=== PATIENT | male | born 1975 | race African-American/Black ===

== ENCOUNTER 2016-07-10 16:38 | Emergency (ER) | payer OTHER ==
[~2016-07-10] VITALS: Ht 177.8 cm; Wt 75.0 kg
[2016-07-10] MEDS ORDERED: IBUPROFEN 600 MG TABLET PO ONE (17:45)
[2016-07-10 19:03] VITALS: BP 131/89
== END 2016-07-10 19:05 | disposition home or self-care (01) ==
LOC: EMS 16:42
DX: S80.02XA Contusion of left knee, initial encounter (principal); F17.210 Nicotine dependence, cigarettes, uncomplicated; X58.XXXA Exposure to other specified factors, initial encounter; Y93.83 Activity, rough housing and horseplay; Y92.89 Other specified places as the place of occurrence of the external cause; Y99.8 Other external cause status
CPT/HCPCS: 99284

== ENCOUNTER 2019-09-12 05:23 | Emergency (ER) | payer OTHER ==
[~2019-09-12] VITALS: Ht 172.7 cm; Wt 84.1 kg
[2019-09-12] MEDS ORDERED: LORazepam 2 MG/ML VIAL IVP ONE (06:00)
[2019-09-12 06:14] LABS: BASOPHILS % (AUTO) 0.6 % (0.0-2.0); EOSINOPHILS % (AUTO) 0.9 % (1.0-6.0); HEMATOCRIT 44.7 % (41-53); HEMOGLOBIN 15.2 g/dL (13.5-17.5); LYMPHOCYTES % (AUTO) 34.1 % (22.0-44.0); MEAN CORPUSCULAR HEMOGLOBIN 30.6 pg (26.0-34.0); MEAN CORPUSCULAR VOLUME 90 fL (80-100); MONOCYTES # (AUTO) 0.5 K/uL (0.1-1.0); MONOCYTES % (AUTO) 8.1 % (2.0-9.0); NEUTROPHILS # (AUTO) 3.3 K/uL (1.8-7.7); NEUTROPHILS % (AUTO) 56.3 % (40.0-70.0); PLATELET COUNT (AUTO) 199 K/uL (150-450); RED BLOOD CELL COUNT(AUTO) 4.98 MIL/uL (4.50-5.90); RED CELL DISTRIBUTION WIDTH 14.1 % (11.5-14.5)
[2019-09-12 06:30] LABS: ANION GAP 9 mmol/L (8-16); CALCIUM, TOTAL 8.9 mg/dL (8.8-10.5); CARBON DIOXIDE 27 mmol/L (22-29); CHLORIDE 103 mmol/L (98-107); CREATININE 1.41 mg/dL (0.60-1.30); GLOMERULAR FILTR. RATE CALC > 60 mL/min (>60); GLUCOSE,RANDOM 90 mg/dL (70-110); POTASSIUM 3.9 mmol/L (3.5-5.1); SODIUM SERUM 139 mmol/L (136-145); UREA NITROGEN, BLOOD 13 mg/dL (7-18)
[2019-09-12 06:37] LABS: ALANINE AMINOTRANSFERASE 16 U/L (12-78); ALBUMIN 4.1 g/dL (3.4-5.0); ALKALINE PHOSPHATASE 71 U/L (46-116); ASPARTATE AMINOTRANSFERASE 14 U/L (15-37); BILIRUBIN,TOTAL 0.9 mg/dL (0.1-1.0); TOTAL PROTEIN, SERUM 7.5 g/dL (6.4-8.2)
[2019-09-12 09:09] LABS: AMPHET/METH SCREEN,URINE POSITIVE (NEGATIVE); BARBITURATE SCREEN, URINE NEGATIVE (NEGATIVE); BENZODIAZEPINES SCREEN,URINE NEGATIVE (NEGATIVE); CANNABINOID SCREEN,URINE POSITIVE (NEGATIVE); COCAINE SCREEN,URINE NEGATIVE (NEGATIVE); METHADONE SCREEN, URINE NEGATIVE (NEGATIVE); OPIATE SCREEN,URINE NEGATIVE (NEGATIVE)
[2019-09-12 09:16] LABS: PHENCYCLIDINE SCREEN,URINE POSITIVE (NEGATIVE)
[2019-09-12 09:34] VITALS: BP 135/79
== END 2019-09-12 10:29 | disposition home or self-care (01) ==
LOC: EMS 05:23
DX: R07.9 Chest pain, unspecified (principal); F19.10 Other psychoactive substance abuse, uncomplicated; G43.909 Migraine, unspecified, not intractable, without status migrainosus; F12.90 Cannabis use, unspecified, uncomplicated; F17.210 Nicotine dependence, cigarettes, uncomplicated
CPT/HCPCS: 36415; 71045; 80053; 80307; 84484; 85025; 93005; 96374; 99285; G0480; J2060

== ENCOUNTER 2024-11-26 08:48 | Emergency (ER) | payer MEDICAID, OTHER ==
[~2024-11-26] VITALS: Ht 177.8 cm; Wt 60.4 kg
[2024-11-26 08:56] VITALS: TEMP 98.1
[2024-11-26 09:18] LABS: PLATELET COUNT (AUTO) 238 K/uL (150-450); RED BLOOD CELL COUNT(AUTO) 4.80 MIL/uL (4.50-5.90); RED CELL DISTRIBUTION WIDTH 14.1 % (11.5-14.5); WHITE BLOOD COUNT (AUTO) 7.8 K/uL (4.5-11.0)
[2024-11-26 09:27] LABS: CALCIUM, TOTAL 8.6 mg/dL (8.8-10.5); CREATININE 1.67 mg/dL (0.60-1.30); GLOMERULAR FILTR. RATE CALC 53 mL/min (>60); GLUCOSE,RANDOM 92 mg/dL (70-110); SODIUM SERUM 138 mmol/L (136-145); UREA NITROGEN, BLOOD 36 mg/dL (7-18)
[2024-11-26 09:38] LABS: LACTIC ACID 0.8 mmol/L (0.4-2.0)
[2024-11-26 09:39] LABS: TROPONIN I-HIGH SENSITIVITY 15 ng/L (<76)
[2024-11-26 09:47] LABS: ASPARTATE AMINOTRANSFERASE 49 U/L (15-37); CREATINE KINASE, TOTAL ONLY 1631 U/L (39-308); TOTAL PROTEIN, SERUM 7.1 g/dL (6.4-8.2)
[2024-11-26 09:50] LABS: APPEARANCE,URINE HAZY (CLEAR); GLUCOSE, URINE (UA) NEGATIVE (NEGATIVE); LEUKOCYTE ESTERASE ,URINE NEGATIVE (NEGATIVE); NITRATE,URINE NEGATIVE (NEGATIVE); OCCULT BLOOD,URINE SMALL (NEGATIVE); PH,URINE DRUG SCREEN 5.5 (5.0-8.0); SPECIFIC GRAVITIY, URINE 1.039 (1.003-1.030)
[2024-11-26 09:57] LABS: ALCOHOL, URINE DRUG SCREEN NEGATIVE (NEGATIVE); AMPHET/METH SCREEN,URINE POSITIVE (NEGATIVE); BARBITURATE SCREEN, URINE NEGATIVE (NEGATIVE); CANNABINOID SCREEN,URINE POSITIVE (NEGATIVE); COCAINE SCREEN,URINE NEGATIVE (NEGATIVE); METHADONE SCREEN, URINE NEGATIVE (NEGATIVE)
[2024-11-26 10:18] LABS: SULFOSALICYLIC ACID,URINE 2+ (Negative)
[2024-11-26 10:19] LABS: FINE GRANULAR CASTS,URINE 0-2 /LPF (None Seen)
[2024-11-26] MEDS: SODIUM CHLORIDE 0.9% 500 ML IV ONE ×2 (10:54→10:59)
[2024-11-26] MEDS: CeFAZolin 1 GM/DEXTROSE 50 ML IV ONE (10:54)
[2024-11-26] MEDS ORDERED: IOHEXOL 350 MG/ML 100 ML VIAL ONE (11:47)
[2024-11-26] MEDS ORDERED: SODIUM CHLORIDE 0.9% 100 ML ONE (11:47)
[2024-11-26] MEDS: SODIUM CHLORIDE 0.9% 1,000 ML IV ONE (12:17)
[2024-11-26] MEDS: VANCOMYCIN 1GM/WATER(PEG/NADA) 200 ML IV ONE (12:18)
[2024-11-26 12:31] LABS: CALCIUM, TOTAL 7.5 mg/dL (8.8-10.5); CREATININE 1.34 mg/dL (0.60-1.30); GLOMERULAR FILTR. RATE CALC > 60 mL/min (>60); GLUCOSE,RANDOM 79 mg/dL (70-110); SODIUM SERUM 138 mmol/L (136-145); UREA NITROGEN, BLOOD 31 mg/dL (7-18)
[2024-11-26 18:59] VITALS: BP 125/82; PULSE 63; RESP 25; O2SAT 100
[2024-11-26] MEDS ORDERED: VANCOMYCIN 750 MG/WATER(PEG) 150 ML IV SCH (20:00)
== END 2024-11-26 20:49 | disposition short-term general hospital (02) ==
LOC: EMS 08:52 → EDH 14:07 → UNDOADMIN 14:07 → EMS 20:49
DX: L02.01 Cutaneous abscess of face (principal); G92.9 Unspecified toxic encephalopathy; R41.82 Altered mental status, unspecified; G43.909 Migraine, unspecified, not intractable, without status migrainosus; F17.210 Nicotine dependence, cigarettes, uncomplicated; F12.90 Cannabis use, unspecified, uncomplicated; Z98.890 Other specified postprocedural states
CPT/HCPCS: 99285; 96365; 10060; 70487; 71045; 96367; 96361; 96366; 80048; 80076; 81001; 82140; 82550; 82962; 83605; 84484; 85025; 93005; 80307; 36415; 70486; Q9967; J0690; J7050; J7040; J3490; 81002; G0378